=== PATIENT | male | born 1995 | race Hispanic/Latino ===

== ENCOUNTER 2019-04-10 20:47 | Inpatient (IN) | payer OTHER ==
[2019-04-10 21:18] VITALS: BMI 28.8
[2019-04-10] MEDS: MORPHINE 2 MG/ML SYR IV PRN (22:04)
[2019-04-10] MEDS: NA CHLORIDE 0.9% 1,000 ML IV SCH (22:05)
[2019-04-11] MEDS: MORPHINE 2 MG/ML SYR IV PRN ×6 (00:14→23:27)
[2019-04-11 05:12] LABS: Absolute Lymphocytes (CBC) 0.8 K/uL (0.7-4.9); Absolute Monocytes 0.9 K/uL (0.1-1.3); Absolute Neutrophil 11.9 K/uL (1.8-8.0); Basophils % 0.1 % (0-1.3); Hematocrit 43.9 % (39.6-49.0); Lymphocytes % 5.8 % (15.3-44.8); MPV 7.1 fL (7.6-11.3); Monocytes % 6.8 % (3.3-12.3); RBC Red Blood Cell Count 5.12 M/uL (4.33-5.43)
[2019-04-11 05:25] LABS: BUN Blood Urea Nitrogen 8 mg/dL (7-18); Bicarbonate 26 mmol/L (21-32); Glucose Level 132 mg/dL (74-106); Potassium 3.7 mmol/L (3.5-5.1); Sodium Level 135 mmol/L (136-145)
[2019-04-11 07:14] LABS: Blood Morphology Comment NOT SEEN (NOT SEEN); Platelet Estimate ADEQ
[2019-04-11] MEDS ORDERED: Ringers Lactate 1,000 ML IV ONE ×2 (09:17→10:35)
[2019-04-11] MEDS ORDERED: CEFOXITIN/SWI 1gm 1 GM/10 ML SYR ONE (09:38)
[2019-04-11] MEDS ORDERED: PROPOFOL 200 MG/20 ML VIAL IV ONE (09:42)
[2019-04-11] MEDS ORDERED: LIDOCAINE 1% MPF 5 ML VIAL ONE (09:42)
[2019-04-11] MEDS ORDERED: FENTANYL CITR 100 MCG/2 ML ONE ×2 (09:42→10:35)
[2019-04-11] MEDS ORDERED: ROCURONIUM 50 MG/5 ML VIAL IV ONE (09:42)
[2019-04-11] MEDS ORDERED: MIDAZOLAM HCL 2 MG/2 ML INJ ONE (09:42)
[2019-04-11] MEDS ORDERED: SUCCINYLCHOLINE 20 MG/ML (10 ML) IV ONE ×2 (09:54→11:16)
[2019-04-11] MEDS ORDERED: KETOROLAC 30 MG/ML INJ ONE (10:35)
[2019-04-11] MEDS ORDERED: GLYCOPYRROLATE 0.2 MG/ML SYR ONE (10:35)
[2019-04-11] MEDS ORDERED: ONDANSETRON 4 MG/2 ML VIAL ONE (10:35)
[2019-04-11] MEDS ORDERED: NEOSTIGMINE 1 MG/ML -10 ML VIAL ONE (10:35)
--- NOTE | 2019-04-11 10:48 | P.BOP ---
Preoperative diagnosis: LLQ, suprapubic pain, acute appendicititis Postoperative diagnosis: same Primary procedure: 1. Diagnostic laparoscopy, 2. laparoscopic appendectomy Graphite Mill Operator: KAREL RUELAS (DIRECTOR ONLINE MARKETING) Estimated blood loss: <10cc Specimen: appendix Findings: acute appendicititis Anesthesia: General Complications: None Transferred to: Recovery Room Condition: Good
--- NOTE | 2019-04-11 11:59 | HP ---
Date of Admission: 04/10/2019 History Of Present Illness: Mr. Jarrett is a 23-year-old patient, came to a local ER a few hours ago with suprapubic tenderness. They did an extensive workup on him including blood work, imaging, CT s can, and found to have some cystitis and also a structure in the appendix that looks abnormal, althou gh they cannot associate the pain completely to his findings and appendix. They understand the patie nt has this disease and they want me to admit the patient to this institution and transfer for contin ued workup for this problem. He denies any dysuria, hematuria, hematochezia, or melena. He denies a ny recent traveling out of the country. He denies any family members sick at home. He said the pain started today; he has not had this pain before. He denies any trauma, any heavy lifting, and denies any dysuria. Review of Systems: Ten points otherwise unremarkable. Past Surgical History: None. Past Medical History: None. Social History: He does smoke a half pack a day. He does not drink alcohol. Family History: Noncontributory. No history of cancer. Physical Examination: General: The patient is awake and alert. HEENT: Pupils are equal and reactive, anicteric. Neck: Supple. Chest: Clear. Abdomen: Left lower quadrant suprapubic and also mild right lower quadrant tenderness. There is no rebound tenderness at this moment. He points right at suprapubic area as the main area of his pain. He said it moved to the left side. Rectal: Deferred by the patient. Extremities: Good capillary refill. Neurologic: Cranial nerves 2 through 12 grossly within normal limits. Laboratory Data: UA; nitrite negative, blood negative. Creatinine is 0.9. WBC count of 10.1, plate lets 278. CAT scan of abdomen and pelvis was done in [place] by the radiologist. They claim that the patient has a small umbilical hernia. The aorta, kidney, adrenal, pancreas, spleen and liver with no major abno rmalities and no pneumoperitoneum. They noticed the appendix to be mildly dilated, they cannot say i t is a mucocele or not. They do not see any periappendiceal stranding or wall thickening. There is a circumferential urinary bladder wall thickening suspicious for cystitis. Assessment And Plan: This is a 23-year-old patient with a suprapubic pain. CAT scan shows some dila brenden appendix and there is no periappendiceal inflammation. WBC count 10. They also claimed the patricia ent has cystitis, although the UA is negative. We are admitting him n.p.o. We are going to repeat t he blood work. Once again, we are going to give him hydration. We are going to hold the antibiotics at this moment. I discussed with him and his family the options of diagnostic laparoscopy, laparosc opic/possible open appendectomy with benefits, alternatives, and risks including, but not limited to infection, bleeding, damage to adjacent structures, anesthesia complications, negative appendix, and negative exploration. At this moment, we are going to try to see how he goes in the next few hours. We are going to repeat the CBC once again and if we see that he does not improve in the next day few hours, he is going to have to let me put the camera in and we will take a look at that appendix to m sonia sure that it is not just an atypical appendicitis, he understands. SAMIRA/LOPEZ Voice ID: [id number]
[2019-04-11] MEDS ORDERED: CEFOXITIN SODIUM 1 GM/VIAL IVPB SCH (12:00)
[2019-04-11] MEDS: CEFOXITIN/SWI 1gm 1 GM/10 ML SYR IV SCH ×3 (12:01→23:28)
[2019-04-11] MEDS: NA CHLORIDE 0.9% 1,000 ML IV SCH (12:01)
[2019-04-11] MEDS: HYDROCODONE/APAP 7.5/325 MG TAB PO PRN (13:57)
[2019-04-11] MEDS: ACETAMINOPHEN 325 MG TABLET PO PRN (16:55)
--- NOTE | 2019-04-11 20:38 | OP ---
Date of Procedure: 04/11/2019 Surgeon: Sarath Knapp MD Diagnosis: Suprapubic pain and left lower quadrant abdominal pain. Acute appendicitis, cystitis. Indications: This is the case of a 23-year-old patient transferred yesterday from another [facility] due to abdominal pain. Etiology of that is not completely clear and in the last few hours patient delineated to mostly suprapubic area and right lower quadrant with increased WBC count. We explained to him the need for diagnostic laparoscopy, laparoscopic, possible open appendectomy with benefits, alternatives, and risks including, but not limited to infection, bleeding, damage to adjacent structu res, anesthesia complication, ME, even . He also understands this may not relieve any symptoms. He might need more than one surgical intervention. He understood, signed a consent. Description Of Procedure: The patient was brought to the operating room, placed in supine position. Anesthesia was done without complication. Abdominal area was prepped and draped in usual sterile fa shion. Marcaine 0.5% was injected for local anesthetic. After time-out was called, incision was mad e over the infraumbilical region. Incision was carried down to fascia, which was opened under direct vision. Peritoneum was encountered, opened under direct vision. Vicryl #1 placed inside the fascia . Mihaela trocar was carefully introduced. Pneumoperitoneum was obtained. I placed 2 more trocars, 5 mm each one of them, in the suprapubic and left lower quadrant under direct visualization. This al lowed me to put a grasper in the area of the periappendiceal region, noticed an inflamed appendix. T he base of the appendix seems to be spared, the rest looks to be inflamed. Goes medially into the hardwick prapubic area, that explained the suprapubic pain. We did diagnostic laparoscopy. The bladder seeme d to be intact, although he has initial diagnosis of cystitis. The rest of intestines looked intact. Stomach and liver with no masses seen. No incarcerated hernia seen. At that moment, I proceeded t o create a window in the base of the appendix, transected that with an Endo MIKA 45 mm 3.5, and the me soappendix with an Endo MIKA 45 mm 2.5, and further hemostasis was obtained with hemoclips. Appendix removed from abdominal cavity using an EndoCatch through the umbilical incision. The area was inspec brenden once again. No bowel leak. No bleeding. At that moment, I proceeded to remove the trocars unde r direct vision. Deflated the pneumoperitoneum. Closed the fascia with #1 Vicryl, irrigated the sub cutaneous tissue, closed that with 3-0 chromic and the skin with sussy. Sponge count and instrumen t counts were correct. The patient tolerated the procedure well. The patient was sent to Recovery i n stable condition. SAMIRA/LOPEZ Voice ID: [id number] Report ID: [id number]
[2019-04-12] MEDS: ACETAMINOPHEN 325 MG TABLET PO PRN (00:01)
[2019-04-12 00:41] VITALS: O2SAT 100
[2019-04-12] MEDS: NA CHLORIDE 0.9% 1,000 ML IV SCH ×2 (02:35→11:30)
[2019-04-12] MEDS: MORPHINE 2 MG/ML SYR IV PRN ×2 (03:51→08:02)
[2019-04-12] MEDS: CEFOXITIN/SWI 1gm 1 GM/10 ML SYR IV SCH ×5 (06:16→23:00)
[2019-04-12] MEDS: HYDROCODONE/APAP 7.5/325 MG TAB PO PRN ×3 (07:29→21:50)
--- NOTE | 2019-04-12 20:39 | PN ---
Date of Progress Note: 04/12/2019 Diagnosis: Acute appendicitis. Subjective: The patient had appendectomy done. He is doing better, although early this morning he h ad fevers of 102. He is feeling better right now. The last few times he has been afebrile. He is t rying to tolerate the diet. Has not had a bowel movement yet, but he has apparently passed just a fe w seconds ago some flatus. He has been requiring some pain medication. Objective: Chest: Clear. Abdomen: Soft and depressible. Intact surgical site. Plan: The patient will continue with pain control. IV antibiotics, and if by tomorrow is afebrile, we may consider sending him home. We are going to advance his diet. SAMIRA/LOPEZ Voice ID: [id number] Report ID: [id number]
[2019-04-13] MEDS: MORPHINE 2 MG/ML SYR IV PRN (00:22)
[2019-04-13] MEDS: NA CHLORIDE 0.9% 1,000 ML IV SCH ×2 (03:35→11:38)
[2019-04-13] MEDS: HYDROCODONE/APAP 7.5/325 MG TAB PO PRN ×2 (03:38→10:28)
[2019-04-13] MEDS: CEFOXITIN/SWI 1gm 1 GM/10 ML SYR IV SCH ×2 (06:18→11:33)
[2019-04-13 13:24] VITALS: TEMP 97.9
--- NOTE | 2019-04-13 15:46 | P.DS ---
Admission Date: 04/11/19 Discharge Date: 04/13/19 Disposition: ROUTINE DISCHARGE Discharge Condition: GOOD Vital Signs/Physical Exam: Temp Pulse Resp BP Pulse Ox 97.9 F 85 18 131/69 96 04/13/19 12:00 04/13/19 12:00 04/13/19 12:00 04/13/19 12:00 04/13/19 12:00 General: Alert, In no apparent distress, Oriented x3, Cooperative HEENT: EOMI Neck: Supple Respiratory: Normal air movement Gastrointestinal: Soft and benign Neurological: Normal speech Laboratory Data at Discharge: WBC 13.6 K/uL (4.3-10.9) H 04/11/19 04:41 Hgb 15.3 g/dL (13.6-17.9) 04/11/19 04:41 Hct 43.9 % (39.6-49.0) 04/11/19 04:41 Plt Count 249 K/uL (152-406) 04/11/19 04:41 Sodium 135 mmol/L (136-145) L 04/11/19 04:41 Potassium 3.7 mmol/L (3.5-5.1) 04/11/19 04:41 BUN 8 mg/dL (7-18) 04/11/19 04:41 Creatinine 0.94 mg/dL (0.55-1.3) 04/11/19 04:41 Glucose 132 mg/dL (74-106) H 04/11/19 04:41 Home Medications: NK [No Home Meds] 04/11/19 Patient Discharge Instructions: may take a shower with dressing off Diet: AHA Activity: No lifting more than 10 lbs Followup: Sarath Knapp MD [ACTIVE - CAN ADMIT] - 1 Week
[2019-04-13 16:55] VITALS: BP 142/72
== END 2019-04-13 16:52 | disposition home or self-care (01) | DRG 343 ==
LOC: 4TH 20:48 → OBSVTOIN 20:48 → INTOOBSV 20:48 → OBSVTOIN 04-11 20:48
PROVIDERS: ADMIT Surgery; ATTEND Surgery
PROC: 0DTJ4ZZ Resection of Appendix, Percutaneous Endoscopic Approach (ICD-10-PCS; principal; 2019-04-11 10:00)
DX: K35.80 Unspecified acute appendicitis (principal); N30.90 Cystitis, unspecified without hematuria; F17.210 Nicotine dependence, cigarettes, uncomplicated
CPT/HCPCS: 36415; 80048; 83605; 85025; 87040; 88304; 96365; 96367; G0378; J0330; J2250; J2270; J2405; J2704; J2710; J3010; J7030

== ENCOUNTER 2020-05-27 01:24 | Emergency (ER) | payer OTHER ==
[2020-05-27 03:02] LABS: Absolute Lymphocytes (CBC) 2.5 K/uL (0.7-4.9); Basophils % 0.5 % (0-1.3); Hematocrit 49.6 % (39.6-49.0); Lymphocytes % 29.1 % (15.3-44.8); MPV 7.5 fL (7.6-11.3); Protime INR 0.91; RBC Red Blood Cell Count 5.78 M/uL (4.33-5.43)
[2020-05-27 03:18] LABS: ALT/SGPT 133 U/L (12-78); AST/SGOT 71 U/L (15-37); Albumin 4.4 g/dL (3.4-5.0); Alkaline Phosphatase 101 U/L (45-117); BUN Blood Urea Nitrogen 13 mg/dL (7-18); Bicarbonate 23 mmol/L (21-32); Bilirubin Direct 0.1 mg/dL (0-0.2); Bilirubin Total 0.7 mg/dL (0.2-1.0); Creatine Phosphokinase 111 U/L (39-308); Glucose Level 111 mg/dL (74-106); Magnesium 2.2 mg/dL (1.8-2.4); NT PRO-BNP 14 pg/mL (<125); Potassium 3.7 mmol/L (3.5-5.1); Protein, Total 8.6 g/dL (6.4-8.2); Sodium Level 138 mmol/L (136-145); Troponin (Emerg Dept Use Only) < 0.02 ng/mL (0.0-0.045)
[2020-05-27 03:38] LABS: Barbiturates NEGATIVE (NEGATIVE); Benzodiazepines NEGATIVE (NEGATIVE); Cocaine POSITIVE (NEGATIVE); METHAMPHETAM NEGATIVE (NEGATIVE); Methadone NEGATIVE (NEGATIVE); Opiates NEGATIVE (NEGATIVE); Phencyclidine NEGATIVE (NEGATIVE); THC Cannibis NEGATIVE (NEGATIVE)
[2020-05-27 03:43] LABS: Urine Glucose NEGATIVE (NEG); Urine Specific Gravity 1.025 (1.005-1.030)
[2020-05-27 03:44] LABS: Urine Blood NEGATIVE (NEG); Urine Protein NEGATIVE (NEG); Urine pH 7.5 (5.0-7.0)
[2020-05-27] MEDS ORDERED: LORazepam 2 MG/ML VIAL ONE (04:29)
--- NOTE | 2020-05-27 05:33 | EDPHYS ---
Physician Documentation [facility] Name: Kolby Balbuena Age: 25 yrs Sex: Male : 1995 Arrival Date: 05/27/2020 Time: : Bed 14 Private MD: ED Physician Jhoan Pacheco HPI: 05/27 02:41 This 25 yrs old Male presents to ER via Ambulatory with complaints of Anxiety. [facility] 02:41 The patient presents to the emergency department with anxiety, over unknown [facility] circumstances. Onset: The symptoms/episode began/occurred today. Past psychiatric history: Prior diagnosis: Anxiety, Psychiatric medications include: none, Refused to take medication he was started on several months ago, Primary psychiatric physician: the patient does not have a primary psychiatric physician, the patient has not had a prior suicide gesture, the patient does not have a previous inpatient psychiatric history, the patient's last psychiatric treatment was none. Associated signs and symptoms:. 02:43 Severity of symptoms: At their worst the symptoms were moderate today, in the emergency [facility] department the symptoms have improved moderately. The patient has experienced similar episodes in the past, several times. 02:43 Associated signs and symptoms: Pertinent positives; anxiety, chest pain, suicide mh7 ideation, cocaine, Pertinent negatives: abdominal pain, chills, delusions, depression, fever, hallucinations, headache, homicidal ideation, nausea, night sweats, palpitations, paranoia, shortness of breath, suicide ideation, tremor, vomiting. Historical: - Allergies: 01:38 No Known Allergies; lp1 - Home Meds: 01:38 None [Active]; lp1 - PMHx: 01:38 Anxiety; lp1 - PSHx: 01:38 Appendectomy; lp1 - Immunization history:: Adult Immunizations up to date. - Social history:: Smoking status: Patient reports the use of cigarette tobacco products, denies chronic smoking, but will smoke occasionally, Patient uses alcohol, on a daily basis. street drugs, marijuana. ROS: 02:43 Constitutional: Negative for fever, chills, and weight loss, Eyes: Negative for injury, mh7 pain, redness, and discharge, ENT: Negative for injury, pain, and discharge, Neck: Negative for injury, pain, and swelling, Respiratory: Negative for shortness of breath, cough, wheezing, and pleuritic chest pain, Abdomen/GI: Negative for abdominal pain, nausea, vomiting, diarrhea, and constipation, Back: Negative for injury and pain, : Negative for injury, bleeding, discharge, and swelling, MS/Extremity: Negative for injury and deformity, Skin: Negative for injury, rash, and discoloration, Neuro: Negative for headache, weakness, numbness, tingling, and seizure, Allergy/Immunology: Negative for hives, rash, and allergies, Endocrine: Negative for neck swelling, polydipsia, polyuria, polyphagia, and marked weight changes, Hematologic/Lymphatic: Negative for swollen nodes, abnormal bleeding, and unusual bruising. Exam: 02:43 Constitutional: This is a well developed, well nourished patient who is awake, alert, mh7 and in no acute distress. Head/Face: Normocephalic, atraumatic. Eyes: Pupils equal round and reactive to light, extra-ocular motions intact. Lids and lashes normal. Conjunctiva and sclera are non-icteric and not injected. Cornea within normal limits. Periorbital areas with no swelling, redness, or edema. Neck: Trachea midline, no thyromegaly or masses palpated, and no cervical lymphadenopathy. Supple, full range of motion without nuchal rigidity, or vertebral point tenderness. No Meningismus. Chest/axilla: Normal chest wall appearance and motion. Nontender with no deformity. No lesions are appreciated. Cardiovascular: Regular rate and rhythm with a normal S1 and S2. No gallops, murmurs, or rubs. Normal PMI, no JVD. No pulse deficits. Respiratory: Lungs have equal breath sounds bilaterally, clear to auscultation and percussion. No rales, rhonchi or wheezes noted. No increased work of breathing, no retractions or nasal flaring. Abdomen/GI: Soft, non-tender, with normal bowel sounds. No distension or tympany. No guarding or rebound. No evidence of tenderness throughout. Back: No spinal tenderness. No costovertebral tenderness. Full range of motion. Skin: Warm, dry with normal turgor. Normal color with no rashes, no lesions, and no evidence of cellulitis. MS/ Extremity: Pulses equal, no cyanosis. Neurovascular intact. Full, normal range of motion. Neuro: Awake and alert, GCS 15, oriented to person, place, time, and situation. Cranial nerves II-XII grossly intact. Motor strength 5/5 in all extremities. Sensory grossly intact. Cerebellar exam normal. Normal gait. 02:43 Psych: Behavior/mood is anxious, Affect is calm, Oriented to person, place, time, Patient has no thoughts/intents to harm self or others. Judgement / Insight is normal. Memory is normal. Delusions/hallucinations are not present. 05:03 ECG was reviewed by the Attending Physician. [facility] Vital Signs: 01:39 BP 147 / 98; Pulse 80; Resp 18; Temp 98.5(O); Pulse Ox 99% on R/A; Weight 90.72 kg (R); lp1 Height 5 ft. 9 in. (175.26 cm); 03:08 BP 141 / 97; Pulse 91; Resp 19; Pulse Ox 99% on R/A; lp1 04:00 BP 147 / 92; Pulse 84; Resp 14; Pulse Ox 99% on R/A; lp1 05:00 BP 130 / 91; Pulse 81; Resp 14; Pulse Ox 98% on R/A; lp1 05:51 BP 134 / 88; Pulse 83; Resp 16; Pulse Ox 99% on R/A; lp1 01:39 Body Mass Index 29.54 (90.72 kg, 175.26 cm) 1 MDM: 02:22 Patient medically screened. [facility] 05:29 Differential diagnosis: drug withdrawal. depression, Anxiety, Substance Abuse. Data [facility] reviewed: vital signs, nurses notes, lab test result(s), CBC, electrolytes, urine drug screen, EKG, radiologic studies, plain films. Data interpreted: quality assurance monitor body: rate is 73 beats/min, rhythm is normal sinus rhythm, regular, Interpretation: normal rate, normal rhythm, Pulse oximetry: on room air is 99 %. Interpretation: normal. Counseling: I had a detailed discussion with the patient and/or guardian regarding: the historical points, exam findings, and any diagnostic results supporting the discharge/admit diagnosis, the presence of at least one elevated blood pressure reading (>120/80) during this emergency department visit, lab results, radiology results, the need for outpatient follow up, to return to the emergency department if symptoms worsen or persist or if there are any questions or concerns that arise at home. Response to treatment: the patient's symptoms have resolved after treatment, the patient's blood pressure is in an acceptable range, mental status has returned to baseline, the patient no longer shows bradycardia, the patient is not short of breath, the patient is not tachycardic, the patient's pain is gone, the patient's temperature has normalized. 05/27 02:23 Order name: Basic Metabolic Panel; Complete Time: 03:47 7 05/27 02:23 Order name: CBC with Diff; Complete Time: 03:47 05/27 02:23 Order name: LFT's; Complete Time: 03:47 05/27 02:23 Order name: Magnesium; Complete Time: 03:47 05/27 02:23 Order name: NT PRO-BNP; Complete Time: 03:47 05/27 02:23 Order name: PT-INR; Complete Time: 03:47 05/27 02:23 Order name: Troponin (emerg Dept Use Only); Complete Time: 03:47 05/27 02:23 Order name: XRAY Chest (1 view) [facility] 05/27 02:23 Order name: EKG; Complete Time: 02:25 7 05/27 02:23 Order name: Cardiac monitoring; Complete Time: 03:05 05/27 02:23 Order name: CPK; Complete Time: 03:47 05/27 02:23 Order name: UDS; Complete Time: 03:47 05/27 02:51 Order name: Urine Dipstick--Ancillary (enter results); Complete Time: 03:47 tt3 05/27 02:23 Order name: EKG - Nurse/Tech; Complete Time: 03:05 7 05/27 02:23 Order name: IV Saline Lock; Complete Time: 03:05 7 05/27 02:23 Order name: Labs collected and sent; Complete Time: 03:05 05/27 02:23 Order name: O2 Per Protocol; Complete Time: 03:05 05/27 02:23 Order name: O2 Sat Monitoring; Complete Time: 03:05 7 EC:03 Rate is 74 beats/min. Rhythm is regular, Normal Sinus Rhythm. QRS [place] is Normal. MT mh7 interval is normal. QRS interval is normal. QT interval is normal. No Q waves. T waves are Normal. No ST changes noted. Clinical impression: NSR w/ Non-specific ST/T Changes. Administered Medications: 04:41 Drug: Ativan 1 mg Route: IVP; Site: right antecubital; lp1 05:54 Follow up: Response: Marked relief of symptoms lp1 Disposition: 05/27/20 05:32 Discharged to Home. Impression: Cocaine Abuse, Anxiety. - Condition is Stable. - Discharge Instructions: Stimulant Use Disorder-Cocaine, Generalized Anxiety Disorder. - Work release form, Medication Reconciliation Form, Thank You Letter, Antibiotic Education, Prescription Opioid Use form. - Follow up: Private Physician; When: 1 - 2 days; Reason: Worsening of condition, Recheck today's complaints, Re-evaluation by your physician. - Problem is an acute exacerbation. - Symptoms have improved. Signatures: Dispatcher [employer] Inez Huang RN RN lp1 Jhoan Pacheco MD MD mh7 Corrections: (The following items were deleted from the chart) 05:54 05:32 05/27/2020 05:32 Discharged to Home. Impression: Cocaine Abuse; Anxiety. lp1 Condition is Stable. Forms are Medication Reconciliation Form, Thank You Letter, Antibiotic Education, Prescription Opioid Use. Follow up: Private Physician; When: 1 - 2 days; Reason: Worsening of condition, Recheck today's complaints, Re-evaluation by your physician. Problem is an acute exacerbation. Symptoms have improved. mh7
--- NOTE | 2020-05-27 05:33 | ER ---
Nurse's Notes [facility] Name: Kolby Balbuena Age: 25 yrs Sex: Male : 1995 Arrival Date: 05/27/2020 Time: : Bed 14 Private MD: Diagnosis: Cocaine Abuse;Anxiety Presentation: 05/27 01:36 Chief complaint: Patient states: States attempting to go to bed tonight and feeling lp1 shaky, hands clammy, chest feels tight; similar to previous anxiety attacks;. Ebola Screen: No symptoms or risks identified at this time. Risk Assessment: Do you want to hurt yourself or someone else? Patient reports no desire to harm self or others. Onset of symptoms was May 27, 2020. 01:36 Method Of Arrival: Ambulatory lp1 01:36 Acuity: JEANNE 3 lp1 01:39 Coronavirus screen: Patient denies a cough. Patient denies shortness of breath or lp1 difficulty breathing. Patient denies measured and/or subjective temperature greater than 100.4F prior to today's visit. Patient denies travel on a cruise ship or to a country the [facility]NOTE 3] currently lists as an affected area. Patient denies contact with known and/or suspected case of COVID-19. Initial Sepsis Screen: Does the patient meet any 2 criteria? No. Patient's initial sepsis screen is negative. Does the patient have a suspected source of infection? No. Patient's initial sepsis screen is negative. Historical: - Allergies: 01:38 No Known Allergies; lp1 - Home Meds: 01:38 None [Active]; lp1 - PMHx: 01:38 Anxiety; lp1 - PSHx: 01:38 Appendectomy; lp1 - Immunization history:: Adult Immunizations up to date. - Social history:: Smoking status: Patient reports the use of cigarette tobacco products, denies chronic smoking, but will smoke occasionally, Patient uses alcohol, on a daily basis. street drugs, marijuana. Screenin:39 Abuse screen: Denies threats or abuse. Denies injuries from another. Nutritional lp1 screening: No deficits noted. Tuberculosis screening: No symptoms or risk factors identified. Fall Risk None identified. Assessment: 03:09 General: Appears in no apparent distress. Behavior is appropriate for age. Pain: lp1 Complains of pain in chest Pain currently is 3 out of 10 on a pain scale. Quality of pain is described as shooting. Neuro: Level of Consciousness is awake, alert, obeys commands. Cardiovascular: Patient's skin is warm and dry. Respiratory: Respiratory effort is even, unlabored, Breath sounds are clear bilaterally. GI: No signs and/or symptoms were reported involving the gastrointestinal system. : No signs and/or symptoms were reported regarding the genitourinary system. EENT: No signs and/or symptoms were reported regarding the EENT system. Derm: Skin is pink, warm \\T\\ dry. Musculoskeletal: No deficits noted. 04:15 Reassessment: Patient appears in no apparent distress at this time. Patient to bathroom lp1 at this time; states feeling of anxiety "comes and goes". 05:49 Reassessment: Patient appears in no apparent distress at this time. Patient states lp1 feeling better. Patient states symptoms have improved. General: Appears in no apparent distress. Behavior is calm. Vital Signs: 01:39 BP 147 / 98; Pulse 80; Resp 18; Temp 98.5(O); Pulse Ox 99% on R/A; Weight 90.72 kg (R); lp1 Height 5 ft. 9 in. (175.26 cm); 03:08 BP 141 / 97; Pulse 91; Resp 19; Pulse Ox 99% on R/A; lp1 04:00 BP 147 / 92; Pulse 84; Resp 14; Pulse Ox 99% on R/A; lp1 05:00 BP 130 / 91; Pulse 81; Resp 14; Pulse Ox 98% on R/A; lp1 05:51 BP 134 / 88; Pulse 83; Resp 16; Pulse Ox 99% on R/A; lp1 01:39 Body Mass Index 29.54 (90.72 kg, 175.26 cm) lp1 ED Course: 01:27 Patient arrived in ED. cl3 01:37 Triage completed. lp1 01:37 Arm band placed on right wrist. lp1 02:00 Jhoan Pacheco MD is Attending Physician. 7 02:51 Inez Pinto, ROSEMARY is Primary Nurse. lp1 02:52 Inserted saline lock: 20 gauge in right antecubital area, using aseptic technique. lp1 Blood collected. 02:54 XRAY Chest (1 view) In Process Unspecified. EDMS 03:11 Patient has correct armband on for positive identification. groundwater monitoring technician on. Pulse lp1 ox on. NIBP on. 05:53 No provider procedures requiring assistance completed. IV discontinued, No lp1 redness/swelling at site. Pressure dressing applied. Administered Medications: 04:41 Drug: Ativan 1 mg Route: IVP; Site: right antecubital; lp1 05:54 Follow up: Response: Marked relief of symptoms lp1 Outcome: 05:32 Discharge ordered by . 7 05:53 Discharged to home ambulatory, with significant other. lp1 05:53 Condition: good 05:53 Discharge instructions given to patient, Instructed on discharge instructions, follow up and referral plans. Demonstrated understanding of instructions, follow-up care. 05:54 Patient left the ED. lp1 Signatures: Dispatcher [employer] EDInez King RN RN lp1 Zen Gomes cl3 Jhoan Pacheco MD MD 7 Corrections: (The following items were deleted from the chart) 01:42 01:39 Pulse 80bpm; Resp 18bpm; Pulse Ox 99% RA; Temp 98.5F Oral; 90.72 kg Reported; lp1 Height 5 ft. 9 in.; BMI: 29.5; lp1
[2020-05-27 06:14] VITALS: TEMP 98.5
[2020-05-27 06:18] VITALS: BP 134/88; O2SAT 99
--- NOTE | 2020-05-27 07:59 | RAD REPORT ---
EXAM DESCRIPTION: Maria L Single View05/27/2020 2:54 am CLINICAL HISTORY: Chest pain COMPARISON: none FINDINGS: The lungs appear clear of acute infiltrate. The heart is normal size IMPRESSION: No acute abnormalities displayed
--- NOTE | 2020-05-28 07:19 | EKG ---
Test Date: 2020-05-27 Test Time: 03:01:48 [employer] Operator: CARRIE MEASUREMENT RESULTS: Intervals: Rate: 74 FL: 166 QRSD: 90 QT: 386 QTc: 428 [place]: P: 33 FL: 166 QRS: 64 T: 20 INTERPRETIVE STATEMENTS: Normal sinus rhythm RSR' or QR pattern in V1 suggests right ventricular conduction delay Borderline ECG No previous ECG available for comparison Electronically Signed On 05-28-20 07:15:58 CDT by Neftaly Vo
== END 2020-05-27 05:54 | disposition home or self-care (01) ==
LOC: ER 01:24
DX: F14.10 Cocaine abuse, uncomplicated (principal); F17.210 Nicotine dependence, cigarettes, uncomplicated
CPT/HCPCS: 36415; 71045; 80048; 80076; 80307; 81003; 82550; 83735; 83880; 84484; 85025; 85610; 93005; 96374; 99284

== ENCOUNTER 2020-11-27 17:48 | Emergency (ER) | payer OTHER ==
--- NOTE | 2020-11-27 19:19 | RAD REPORT ---
EXAM DESCRIPTION: RAD - Chest Pa And Lat (2 Views) - 11/27/2020 6:06 pm CLINICAL HISTORY: CHEST PAIN COMPARISON: Portable May 27 TECHNIQUE: Frontal and lateral views of the chest were obtained. FINDINGS: The lungs are clear. Heart size is normal and central vasculature is within normal limit s. No pleural effusion or pneumothorax seen. No acute bony finding noted. No aortic abnormality. IMPRESSION: No acute cardiopulmonary process. No significant change from comparison study.
--- NOTE | 2020-11-27 20:32 | EDPHYS ---
Physician Documentation [facility] Name: Kolby Balbuena Age: 25 yrs Sex: Male : 1995 Arrival Date: 11/27/2020 Time: 17:49 Bed 28 Private MD: ED Physician Renaldo Hopkins HPI: 11/27 19:53 This 25 yrs old Male presents to ER via Ambulatory with complaints of Chest kb Pain. 19:53 The patient has not experienced similar symptoms in the past. The patient has not kb recently seen a physician. 19:53 The patient or guardian reports flu symptoms, low-grade fever, myalgias, no appetite. kb Onset: The symptoms/episode began/occurred 3 day(s) ago. Severity of symptoms: At their worst the symptoms were moderate, in the emergency department the symptoms are unchanged. Modifying factors: The symptoms are alleviated by nothing, the symptoms are aggravated by nothing. Associated signs and symptoms: Pertinent positives: malaise, fatigue, chest tightness. Pt states he hasn't been feeling well, having fatigue and chest tightness so he came in to be tested for COVID.. Historical: - Allergies: 17:58 No Known Allergies; ca1 - Home Meds: 17:58 None [Active]; ca1 - PMHx: 17:58 Anxiety; ca1 - PSHx: 17:58 Appendectomy; ca1 - Immunization history:: Adult Immunizations up to date, Flu vaccine is not up to date. - Social history:: Smoking status: Patient/guardian denies using tobacco, the patient reports quitting approximately 1.5 years ago. ROS: 19:51 Respiratory: Negative for shortness of breath, cough, wheezing, and pleuritic chest kb pain, Abdomen/GI: Negative for abdominal pain, nausea, vomiting, diarrhea, and constipation, Back: Negative for injury and pain, MS/Extremity: Negative for injury and deformity, Skin: Negative for injury, rash, and discoloration, Neuro: Negative for headache, weakness, numbness, tingling, and seizure. 19:51 Constitutional: Positive for body aches, chills, fatigue, fever, malaise. 19:51 Cardiovascular: Positive for chest pain. Exam: 18:50 ECG was reviewed by the Attending Physician. kb 19:51 Constitutional: This is a well developed, well nourished patient who is awake, alert, kb and in no acute distress. Head/Face: Normocephalic, atraumatic. Chest/axilla: Normal chest wall appearance and motion. Nontender with no deformity. No lesions are appreciated. Cardiovascular: Regular rate and rhythm with a normal S1 and S2. No gallops, murmurs, or rubs. Normal PMI, no JVD. No pulse deficits. Respiratory: Lungs have equal breath sounds bilaterally, clear to auscultation and percussion. No rales, rhonchi or wheezes noted. No increased work of breathing, no retractions or nasal flaring. Abdomen/GI: Soft, non-tender, with normal bowel sounds. No distension or tympany. No guarding or rebound. No evidence of tenderness throughout. Skin: Warm, dry with normal turgor. Normal color with no rashes, no lesions, and no evidence of cellulitis. MS/ Extremity: Pulses equal, no cyanosis. Neurovascular intact. Full, normal range of motion. Neuro: Awake and alert, GCS 15, oriented to person, place, time, and situation. Cranial nerves II-XII grossly intact. Motor strength 5/5 in all extremities. Sensory grossly intact. Cerebellar exam normal. Normal gait. Vital Signs: 17:55 BP 127 / 83; Pulse 91; Resp 15 S; Temp 98.5(TE); Pulse Ox 100% on R/A; Weight 92.99 kg ca1 (R); Height 5 ft. 9 in. (175.26 cm) (R); Pain 1/10; 20:30 BP 124 / 81; Pulse 86; Resp 16; Temp 98; Pulse Ox 100% on R/A; rv 17:55 Body Mass Index 30.27 (92.99 kg, 175.26 cm) ca1 MDM: 18:07 Patient medically screened. mayte 19:51 Data reviewed: vital signs, nurses notes. Data interpreted: Pulse oximetry: on room air kb is 100 %. Interpretation: normal. Counseling: I had a detailed discussion with the patient and/or guardian regarding: the historical points, exam findings, and any diagnostic results supporting the discharge/admit diagnosis, lab results, radiology results, the need for outpatient follow up, a family practitioner, to return to the emergency department if symptoms worsen or persist or if there are any questions or concerns that arise at home. 11/27 18:09 Order name: Flu; Complete Time: 20:32 kb 11/27 18:10 Order name: COVID-19 kb 11/27 17:51 Order name: Chest Pa And Lat (2 Views) XRAY; Complete Time: 19:27 kb 11/27 17:51 Order name: EKG; Complete Time: 17:51 kb 11/27 17:51 Order name: EKG - Nurse/Tech; Complete Time: 19:28 kb EC:50 Rate is 75 beats/min. Rhythm is regular. QRS [place] is Normal. MN interval is normal at kb 152 msec. QRS interval is normal at 92 msec. QT interval is normal at 360 msec. Administered Medications: No medications were administered Disposition: 11/28 06:59 Co-signature as Attending Physician, Renaldo Hopkins MD I agree with the assessment and mayte plan of care. Disposition: 11/27/20 20:32 Discharged to Home. Impression: Acute upper respiratory infection, unspecified. - Condition is Stable. - Discharge Instructions: Viral Respiratory Infection, COVID-19. - Medication Reconciliation Form, Thank You Letter, Antibiotic Education, Prescription Opioid Use form. - Follow up: Emergency Department; When: As needed; Reason: Worsening of condition. Follow up: Private Physician; When: 2 - 3 days; Reason: Recheck today's complaints, Continuance of care, Re-evaluation by your physician. Signatures: Dispatcher [employer] EDEvelyn Tovar, KANDI DIAZ-Renaldo Dutta MD MD cha Vicente, Ronaldo, RN RN rv Acob, Cheryl, RN RN ca1 Corrections: (The following items were deleted from the chart) 11/27 21:12 20:32 11/27/2020 20:32 Discharged to Home. Impression: Acute upper respiratory rv infection, unspecified. Condition is Stable. Discharge Instructions: Viral Respiratory Infection, COVID-19. Forms are Medication Reconciliation Form, Thank You Letter, Antibiotic Education, Prescription Opioid Use. Follow up: Emergency Department; When: As needed; Reason: Worsening of condition. Follow up: Private Physician; When: 2 - 3 days; Reason: Recheck today's complaints, Continuance of care, Re-evaluation by your physician. kb
--- NOTE | 2020-11-27 20:32 | ER ---
Nurse's Notes [facility] Name: Kolby Balbuena Age: 25 yrs Sex: Male : 1995 Arrival Date: 11/27/2020 Time: 17:49 Bed 28 Private MD: Diagnosis: Acute upper respiratory infection, unspecified Presentation: 11/27 17:55 Chief complaint: Patient states: Chest tightness x 2 days. Reports SOB with tightness, ca1 fatigue and headache. Denies cough, congestion and fever. Coronavirus screen: Client denies travel out of the [place] in the last 14 days. fatigue, headache, shortness of breath, Client presents with at least one sign or symptom that may indicate coronavirus-19. Standard/surgical mask placed on the client. Provider contacted for isolation considerations. The client denies any previous COVID testing. Ebola Screen: Patient negative for fever greater than or equal to 101.5 degrees Fahrenheit, and additional compatible Ebola Virus Disease symptoms Patient denies exposure to infectious person. Patient denies travel to an Ebola-affected area in the 21 days before illness onset. No symptoms or risks identified at this time. Initial Sepsis Screen: Does the patient meet any 2 criteria? No. Patient's initial sepsis screen is negative. Does the patient have a suspected source of infection? No. Patient's initial sepsis screen is negative. Risk Assessment: Do you want to hurt yourself or someone else? Patient reports no desire to harm self or others. Onset of symptoms was November 27, 2020. 17:55 Method Of Arrival: Ambulatory ca1 17:55 Acuity: JEANNE 3 ca1 Historical: - Allergies: 17:58 No Known Allergies; ca1 - Home Meds: 17:58 None [Active]; ca1 - PMHx: 17:58 Anxiety; ca1 - PSHx: 17:58 Appendectomy; ca1 - Immunization history:: Adult Immunizations up to date, Flu vaccine is not up to date. - Social history:: Smoking status: Patient/guardian denies using tobacco, the patient reports quitting approximately 1.5 years ago. Screenin:30 Abuse screen: Denies threats or abuse. Denies injuries from another. Nutritional rv screening: No deficits noted. Tuberculosis screening: No symptoms or risk factors identified. 19:30 Fall Risk None identified. rv Assessment: 19:30 General: Appears in no apparent distress. Behavior is anxious. Pain: Complains of pain rv in chest Pain does not radiate. Pain began suddenly. Neuro: Level of Consciousness is awake, alert, obeys commands, Oriented to person, place, time, situation. Cardiovascular: Patient's skin is warm and dry. 19:30 Respiratory: Airway is patent Respiratory effort is even, unlabored. rv Vital Signs: 17:55 BP 127 / 83; Pulse 91; Resp 15 S; Temp 98.5(TE); Pulse Ox 100% on R/A; Weight 92.99 kg ca1 (R); Height 5 ft. 9 in. (175.26 cm) (R); Pain /; 20:30 BP 124 / 81; Pulse 86; Resp 16; Temp 98; Pulse Ox 100% on R/A; rv 17:55 Body Mass Index 30.27 (92.99 kg, 175.26 cm) ca1 ED Course: 17:49 Patient arrived in ED. ag5 17:50 [facility] Swan [facility]C [facility] kb 17:50 Renaldo Hopkins MD is Attending Physician. kb 17:57 Triage completed. ca1 17:58 Arm band placed on right wrist. ca1 18:01 Leah Mosquera, ROSEMARY is Primary Nurse. ph 18:05 Chest Pa And Lat (2 Views) XRAY In Process Unspecified. EDMS 19:30 Patient has correct armband on for positive identification. Pulse ox on. NIBP on. rv 20:06 No provider procedures requiring assistance completed. Patient did not have IV access rv during this emergency room visit. Patient maintains SpO2 saturation greater than 95% on room air. Administered Medications: No medications were administered Outcome: 20:32 Discharge ordered by . kb 20:33 Discharged to home ambulatory. rv 20:33 Condition: good 20:33 Discharge instructions given to patient, Instructed on discharge instructions, follow rv up and referral plans. Demonstrated understanding of instructions, follow-up care. 21:12 Patient left the ED. rv Addendum: 12/02/2020 08:41 Addendum: COVID-19 Result: Negative result given to RN to notify pt. Contacted by: mitchel Raymond RN . Notified pt of negative COVID 19 swab results. Pt advised that even with a negative test result they should remain in isolation until symptom free for 3 days without medication. Pt also advised to return to the ED for worsening symptoms. Signatures: Dispatcher [employer] EDEvelyn Tovar, EMILY-C ORNAMENTAL METAL ERECTOR APPRENTICE-Mandi Nunez, RN RN Leah Hernandez RN Henri Smallwood ph, RN RN rv Bety Olson RN RN [facility] Charley, tein [facility]
[2020-11-27 21:18] VITALS: O2SAT 100
[2020-11-27 21:19] VITALS: BP 124/81; TEMP 98
--- NOTE | 2020-11-28 16:10 | EKG ---
Test Date: 2020-11-27 Test Time: 18:17:35 Vice President & General Manager [employer]: MEASUREMENT RESULTS: Intervals: Rate: 75 DC: 152 QRSD: 92 QT: 360 QTc: 402 [place]: P: 45 DC: 152 QRS: 56 T: 36 INTERPRETIVE STATEMENTS: Normal sinus rhythm Normal ECG Compared to ECG 05/27/2020 03:01:48 No significant changes Electronically Signed On 11-28-20 16:09:23 [employer]ITE [employer] by Neftaly Vo
== END 2020-11-27 21:12 | disposition home or self-care (01) ==
LOC: ER 17:48
DX: J06.9 Acute upper respiratory infection, unspecified (principal); Z20.828 Contact with and (suspected) exposure to other viral communicable diseases
CPT/HCPCS: 93005; 87804 ×2; 71046; 99284; U0002

== ENCOUNTER 2022-06-01 10:45 | Emergency (ER) | payer OTHER, SELFPAY ==
--- NOTE | 2022-06-01 12:48 | EDPHYS ---
Physician Documentation [facility] Name: Kolby Balbuena Age: 27 yrs Sex: Male : 1995 Arrival Date: 06/01/2022 Time: 10:49 Bed DIS3 Private MD: ED Physician Teo Michel HPI: 06/01 11:47 This 27 yrs old Male presents to ER via Ambulatory with complaints of r/o kb covid. 11:47 The patient or guardian reports flu symptoms, low-grade fever, myalgias. Onset: The kb symptoms/episode began/occurred 4 day(s) ago. Severity of symptoms: At their worst the symptoms were moderate, in the emergency department the symptoms are unchanged. Modifying factors: The symptoms are alleviated by nothing, the symptoms are aggravated by nothing. Associated signs and symptoms: Pertinent positives: fever, Pertinent negatives: chest pain, diarrhea, ear ache, nausea, rhinorrhea, sore throat, vomiting. The patient has not experienced similar symptoms in the past. The patient has not recently seen a physician. Pt reports bodyaches and fever for 4 days. Recent exposure to covid. Historical: - Allergies: 10:59 No Known Allergies; ld1 - Home Meds: 10:59 None [Active]; ld1 - PMHx: 10:59 Anxiety; ld1 - PSHx: 10:59 Appendectomy; ld1 - Immunization history:: Adult Immunizations up to date, Client reports having NOT received the Covid vaccine. - Social history:: Smoking status: Patient denies any tobacco usage or history of. Patient/guardian denies using alcohol. ROS: 11:47 Respiratory: Negative for shortness of breath, cough, wheezing, and pleuritic chest kb pain. 11:47 Constitutional: Positive for body aches, fever, malaise. 11:47 All other systems are negative. Exam: 11:47 Constitutional: This is a well developed, well nourished patient who is awake, alert, kb and in no acute distress. Head/Face: Normocephalic, atraumatic. ENT: Moist Mucous membranes Cardiovascular: Regular rate and rhythm with a normal S1 and S2. No gallops, murmurs, or rubs. No pulse deficits. Respiratory: Respirations even and unlabored. No increased work of breathing. Talking in full sentences Skin: Warm, dry with normal turgor. Normal color. MS/ Extremity: Pulses equal, no cyanosis. Neurovascular intact. Full, normal range of motion. Neuro: Awake and alert, GCS 15, oriented to person, place, time, and situation. Moves all extremities. Normal gait. Psych: Awake, alert, with orientation to person, place and time. Behavior, mood, and affect are within normal limits. Vital Signs: 10:58 BP 129 / 103; Pulse 86; Resp 20; Temp 98.1(TE); Pulse Ox 100% on R/A; Weight 92.99 kg; ld1 Height 5 ft. 9 in. (175.26 cm); Pain 0/10; 10:58 Body Mass Index 30.27 (92.99 kg, 175.26 cm) ld1 MDM: 10:52 Patient medically screened. kb 11:48 Data reviewed: vital signs, nurses notes. Data interpreted: Pulse oximetry: on room air kb is 100 %. Interpretation: normal. 06/01 10:57 Order name: COVID-19 SARS RT PCR (Document "Date of Onset" if Symptomatic); Complete kb Time: 12:47 06/01 10:57 Order name: Flu; Complete Time: 12:47 kb Administered Medications: No medications were administered Disposition Summary: 06/01/22 12:48 Discharge Ordered Location: Home kb Condition: Stable kb Diagnosis - Coronavirus infection, unspecified kb Followup: kb - With: Emergency Department - When: As needed - Reason: Worsening of condition Followup: kb - With: Private Physician - When: 2 - 3 days - Reason: Recheck today's complaints, Continuance of care, Re-evaluation by your physician Discharge Instructions: - Discharge Summary Sheet kb - Viral Respiratory Infection, [id number] kb - COVID-19 kb Forms: - Medication Reconciliation Form kb - Thank You Letter kb - Antibiotic Education kb - Prescription Opioid Use kb - Work release form ld1 Signatures: Dispatcher [employer] Evelyn Lilly FNP-C FNP-Ckb Dibbern, Lauren, RN RN ld1
--- NOTE | 2022-06-01 12:48 | ER ---
Nurse's Notes [facility] Name: Kolby Balbuena Age: 27 yrs Sex: Male : 1995 Arrival Date: 06/01/2022 Time: 10:49 Bed DIS3 Private MD: Diagnosis: Coronavirus infection, unspecified Presentation: 06/01 10:58 Chief complaint: Patient states: Body aches, lightheaded, fever X 4 days. COVID ld1 exposure. Coronavirus screen: Client presents with at least one sign or symptom that may indicate coronavirus-19. Standard/surgical mask placed on the client. Ebola Screen: No symptoms or risks identified at this time. Initial Sepsis Screen: Does the patient meet any 2 criteria? No. Patient's initial sepsis screen is negative. Does the patient have a suspected source of infection? No. Patient's initial sepsis screen is negative. Risk Assessment: Do you want to hurt yourself or someone else? Patient reports no desire to harm self or others. Onset of symptoms was June 01, 2022. 10:58 Method Of Arrival: Ambulatory ld1 10:58 Acuity: JEANNE 3 ld1 Triage Assessment: 10:59 General: Appears in no apparent distress. comfortable, Behavior is calm, cooperative, ld1 appropriate for age. Pain: Denies pain. EENT: No signs and/or symptoms were reported regarding the EENT system. Neuro: Level of Consciousness is awake, alert, obeys commands, Oriented to person, place, time, situation. Cardiovascular: Capillary refill < 3 seconds Patient's skin is warm and dry. Respiratory: Airway is patent Respiratory effort is even, unlabored. GI: Abdomen is round non-distended. : No signs and/or symptoms were reported regarding the genitourinary system. Derm: No signs and/or symptoms reported regarding the dermatologic system. Musculoskeletal: No signs and/or symptoms reported regarding the musculoskeletal system. Historical: - Allergies: 10:59 No Known Allergies; ld1 - Home Meds: 10:59 None [Active]; ld1 - PMHx: 10:59 Anxiety; ld1 - PSHx: 10:59 Appendectomy; ld1 - Immunization history:: Adult Immunizations up to date, Client reports having NOT received the Covid vaccine. - Social history:: Smoking status: Patient denies any tobacco usage or history of. Patient/guardian denies using alcohol. Screenin:27 Abuse screen: Denies threats or abuse. Denies injuries from another. Nutritional ld1 screening: No deficits noted. Tuberculosis screening: No symptoms or risk factors identified. Fall Risk None identified. Assessment: 11:27 Reassessment: See triage assessment. ld1 Vital Signs: 10:58 BP 129 / 103; Pulse 86; Resp 20; Temp 98.1(TE); Pulse Ox 100% on R/A; Weight 92.99 kg; ld1 Height 5 ft. 9 in. (175.26 cm); Pain 0/10; 10:58 Body Mass Index 30.27 (92.99 kg, 175.26 cm) ld1 ED Course: 10:49 Patient arrived in ED. as 10:49 Teo Michel DO is Attending Physician. ms3 10:50 Evelyn Swan FNP-C is [facility]. kb 10:59 Triage completed. ld1 10:59 Arm band placed on right wrist. ld1 11:03 COVID-19 SARS RT PCR (Document "Date of Onset" if Symptomatic) Sent. ld1 11:03 Flu Sent. ld1 11:04 Akanksha Polo, RN is Primary Nurse. iw 11:27 Patient has correct armband on for positive identification. Bed in low position. Call ld1 light in reach. Side rails up X2. Pulse ox on. NIBP on. Door closed. Noise minimized. Warm blanket given. 11:27 No provider procedures requiring assistance completed. Patient did not have IV access ld1 during this emergency room visit. Administered Medications: No medications were administered Medication: 11:27 VIS not applicable for this client. ld1 Outcome: 12:48 Discharge ordered by . kb 12:59 Discharged to home ambulatory, with family. ld1 12:59 Condition: stable 12:59 Discharge instructions given to patient, Instructed on discharge instructions, follow up and referral plans. Demonstrated understanding of instructions, follow-up care. 13:00 Patient left the ED. ld1 Signatures: Evelyn Swan FNP-C FNP-Abril Saab as Akanksha Polo, ROSEMARY RN iw Teo iMchel DO DO ms3 Lala Daley RN RN ld1 Corrections: (The following items were deleted from the chart) 11:00 10:58 Pulse 86bpm; Resp 20bpm; Pulse Ox 100% RA; Temp 98.1F Temporal; 92.99 kg; Height ld1 5 ft. 9 in.; BMI: 30.2; Pain 0/10; ld1
[2022-06-01 13:24] VITALS: BP 129/103; TEMP 98.1; O2SAT 100
== END 2022-06-01 13:00 | disposition home or self-care (01) ==
LOC: ER 10:45
DX: U07.1 COVID-19 (principal)
CPT/HCPCS: 87804; U0003

== ENCOUNTER 2023-10-16 16:34 | Emergency (ER) | payer SELFPAY ==
[2023-10-16 17:11] LABS: Absolute Lymphocytes (CBC) 0.7 K/uL (0.7-4.9); Hematocrit 42.6 % (39.6-49.0); Lymphocytes % 10.8 % (15.3-44.8); MCV 85.7 fL (80-100); MPV 6.9 fL (7.6-11.3); Platelets 215 thou/uL (152-406); RBC Red Blood Cell Count 4.97 M/uL (4.33-5.43)
[2023-10-16] MEDS ORDERED: HYDROCODONE/CHLORPHEN 5 ML/OSYR ONE (17:13)
[2023-10-16] MEDS ORDERED: LORAZEPAM 1 MG TABLET ONE (17:14)
[2023-10-16] MEDS ORDERED: IBUPROFEN 200 MG TAB PO ONE (17:14)
[2023-10-16] MEDS ORDERED: NA CHLORIDE 0.9% 3,000 ML ONE (17:14)
[2023-10-16 17:26] LABS: Albumin 4.3 g/dL (3.4-5.0); Bilirubin Total 0.5 mg/dL (0.2-1.0); Potassium 3.5 mEq/L (3.5-5.1); Protein, Total 8.1 g/dL (6.4-8.2)
[2023-10-16 17:32] LABS: SARS-CoV-2 Antigen Rapid Res Negative (Negative)
--- NOTE | 2023-10-16 17:46 | RAD REPORT ---
EXAM DESCRIPTION: RAD - Chest Single View - 10/16/2023 5:37 pm CLINICAL HISTORY: DYSPNEA Chest pain. COMPARISON: Chest Pa And Lat (2 Views) dated 11/27/2020; Chest Single View dated 05/27/2020Chest Pa A nd Lat (2 Views) dated 11/27/2020; Chest Single View dated 05/27/2020 FINDINGS: Portable technique limits examination quality. The lungs are grossly clear. The heart is normal in size. No displaced fractures. IMPRESSION: No acute intrathoracic process suspected.
[2023-10-16] MEDS ORDERED: ACETAMINOPHEN 325 MG TABLET ONE (17:52)
[2023-10-16] MEDS ORDERED: LIDOCAINE 2% MPF 5 ML VIAL ONE (18:42)
--- NOTE | 2023-10-16 20:00 | EDPHYS ---
Physician Documentation [facility] Name: Kolby Balbuena Age: 28 yrs Sex: Male : 1995 Arrival Date: 10/16/2023 Time: 16:34 Bed 6 Private MD: ED Physician Renaldo Hopkins HPI: 10/16 19:06 This 28 yrs old Male presents to ER via Ambulatory with complaints of snw Breathing Difficulty. 17:43 The patient has shortness of breath at rest. Onset: The symptoms/episode began/occurred snw suddenly. Severity of symptoms: At their worst the symptoms were moderate severe in the emergency department the symptoms have improved. The patient has not recently seen a physician. 19:06 Duration: The symptoms are intermittent, with coughing "fits". snw Historical: - Allergies: 16:46 No Known Allergies; hb - PMHx: 16:46 Anxiety; hb - PSHx: 16:46 Appendectomy; hb - Immunization history:: Adult Immunizations up to date. - Social history:: Smoking status: Patient reports the use of cigarette tobacco products, denies chronic smoking, but will smoke occasionally. ROS: 17:42 Eyes: Negative for injury, pain, redness, and discharge, ENT: Negative for injury, snw pain, and discharge, Neck: Negative for injury, pain, and swelling, Cardiovascular: Negative for chest pain, palpitations, and edema, 17:42 Abdomen/GI: Negative for abdominal pain, nausea, vomiting, diarrhea, and constipation, Back: Negative for injury and pain, : Negative for injury, bleeding, discharge, and swelling, MS/Extremity: Negative for injury and deformity, Skin: Negative for injury, rash, and discoloration, Neuro: Negative for headache, weakness, numbness, tingling, and seizure, 17:42 Constitutional: Positive for body aches, chills, fatigue, fever, poor PO intake, 17:42 Respiratory: Positive for cough, shortness of breath, wheezing, 17:42 Psych: Positive for "angry", Exam: 19:06 Head/Face: Normocephalic, atraumatic. Eyes: Pupils equal round and reactive to light, snw extra-ocular motions intact. Lids and lashes normal. Conjunctiva and sclera are non-icteric and not injected. Cornea within normal limits. Periorbital areas with no swelling, redness, or edema. ENT: Nares patent. No nasal discharge, no septal abnormalities noted. Tympanic membranes are normal and external auditory canals are clear. Oropharynx with no redness, swelling, or masses, exudates, or evidence of obstruction, uvula midline. Mucous membranes moist. Neck: Trachea midline, no thyromegaly or masses palpated, and no cervical lymphadenopathy. Supple, full range of motion without nuchal rigidity, or vertebral point tenderness. No Meningismus. Chest/axilla: Normal chest wall appearance and motion. Nontender with no deformity. No lesions are appreciated. 19:06 Abdomen/GI: Soft, non-tender, with normal bowel sounds. No distension or tympany. No guarding or rebound. No evidence of tenderness throughout. Back: No spinal tenderness. No costovertebral tenderness. Full range of motion. Skin: Warm, dry with normal turgor. Normal color with no rashes, no lesions, and no evidence of cellulitis. MS/ Extremity: Pulses equal, no cyanosis. Neurovascular intact. Full, normal range of motion. Neuro: Awake and alert, GCS 15, oriented to person, place, time, and situation. Cranial nerves II-XII grossly intact. Motor strength 5/5 in all extremities. Sensory grossly intact. Cerebellar exam normal. Normal gait. 19:06 Constitutional: The patient appears alert, awake, anxious, febrile, 19:06 Cardiovascular: Rate: tachycardic, 19:06 Respiratory: the patient does not display signs of respiratory distress, Respirations: accessory muscle usage, shallow respirations, tachypnea, Breath sounds: are clear throughout, pt states he is "angry" turns dusky post coughing spasms, 19:06 Psych: Behavior/mood is cooperative, anxious, aggressive, Oriented to person, place, time, Vital Signs: 16:43 BP 149 / 94; Pulse 148; Resp 24; Temp 101.6(TE); Pulse Ox 100% on R/A; Weight 92.99 kg; hb Height 5 ft. 9 in. ; 17:16 Pulse 132; Resp 20; Pulse Ox 100% on R/A; iw 17:35 BP 137 / 82; Pulse 133; Resp 18; Temp 102.6(O); Pulse Ox 99% on R/A; iw 18:07 BP 149 / 77; Pulse 123; Resp 18; Temp 100.6(O); Pulse Ox 97% on R/A; iw 18:59 BP 131 / 81; Pulse 112; Resp 19; Pulse Ox 98% on R/A; iw 20:16 BP 139 / 87; Pulse 73; Resp 15; Pulse Ox 98% ; nw1 16:43 Body Mass Index 30.27 (92.99 kg, 175.26 cm) hb Malina Coma Score: 20:16 Eye Response: spontaneous(4). Motor Response: obeys commands(6). Verbal Response: nw1 oriented(5). Total: 15. MDM: 16:39 Patient medically screened. snw 17:43 Differential diagnosis: asthma, Bronchitis Chronic Obstructive Pulmonary Disease snw pneumonia, reactive airway disease. Data interpreted: Pulse oximetry: on room air is 98 %. Interpretation: acceptable. Data reviewed: vital signs, nurses notes, lab test result(s). I considered the following discharge prescriptions or medication management in the emergency department Medications were administered in the Emergency Department. See MAR. Historians other than the Patient: Spouse/Significant Other: . Counseling: I had a detailed discussion with the patient and/or guardian regarding the historical points, exam findings, and any diagnostic results supporting the discharge/admit diagnosis, lab results. ED course: Pt had a coughing episode on arrival and became cyanotic. 10/16 16:48 Order name: Blood Culture Adult (2) snw 10/16 16:48 Order name: CBC with Diff; Complete Time: 17:24 snw 10/16 16:48 Order name: CMP; Complete Time: 17:32 snw 10/16 16:48 Order name: Lactate w/ 2H reflex if indic.; Complete Time: 17:44 snw 10/16 16:48 Order name: Protime (+inr); Complete Time: 17:24 snw 10/16 16:48 Order name: Ptt, Activated; Complete Time: 17:24 snw 10/16 16:48 Order name: ABG; Complete Time: 17:24 snw 10/16 16:50 Order name: Flu; Complete Time: 17:35 snw 10/16 16:50 Order name: SARS RAPID; Complete Time: 17:33 snw 10/16 16:48 Order name: Chest Single View XRAY; Complete Time: 17:47 snw 10/16 16:48 Order name: EKG; Complete Time: 16:49 snw 10/16 16:48 Order name: Accucheck; Complete Time: 17:03 snw 10/16 16:48 Order name: Cardiac monitoring; Complete Time: 17:03 snw 10/16 16:48 Order name: EKG - Nurse/Tech; Complete Time: 16:49 snw 10/16 16:48 Order name: IV Saline Lock - Large Bore; Complete Time: 16:49 snw 10/16 16:48 Order name: Labs collected and sent; Complete Time: 16:49 snw 10/16 16:48 Order name: O2 Per Protocol; Complete Time: 16:49 snw 10/16 16:48 Order name: O2 Sat Monitoring; Complete Time: 16:49 snw 10/16 16:48 Order name: Vital Signs; Complete Time: 17:03 snw EC:48 Rate is 136 beats/min. Rhythm is regular. QRS [place] is Normal. [place] interval is normal. snw QRS interval is normal. QT interval is normal. Clinical impression: Sinus tachycardia. Administered Medications: 16:51 CANCELLED (Duplicate Order): hydrocodone-acetaminophen5 mg-325 mg 1 tabs PO once snw 17:03 Drug: Ibuprofen PO 600 mg PO once Route: PO; iw 18:50 Follow up: Response: Temperature is decreased iw 17:16 Drug: NS 0.9% IV (30 ml/kg) 30 ml/kg IV at bolus once; Sepsis Protocol Route: IV; Rate: iw bolus; Site: right antecubital; 19:00 Follow up: IV Status: Infusion continued iw 17:16 Drug: Tussionex Pennkinetic ER PO Suspension 5 ml PO once Route: PO; iw 18:50 Follow up: Response: No adverse reaction iw 17:16 Drug: LORazepam PO 1 mg PO once; sublingual Route: PO; iw 18:50 Follow up: Response: No adverse reaction; Anxiety decreased iw 17:44 Drug: Acetaminophen PO 650 mg PO once Route: PO; iw 18:50 Follow up: Response: Temperature is unchanged iw 18:59 Drug: Lidocaine Infiltration (2 %) 5 mg Infiltration once; nebulize with 3ml NS at iw 8L/min via face mask Route: Infiltration; Disposition: 19:05 Critical Care:. snw Disposition Summary: 10/16/23 19:59 Discharge Ordered Notes: Location: Home snw Condition: Stable snw Diagnosis - Influenza due to other identified influenza virus with other respiratory snw manifestations - Flu B - Laryngospasm snw Followup: snw - With: Emergency Department - When: As needed - Reason: Worsening of condition Followup: snw - With: Private Physician - When: 2 - 3 days - Reason: Recheck today's complaints, Continuance of care, Re-evaluation by your physician Discharge Instructions: - Discharge Summary Sheet snw - Influenza, Adult snw - Pharyngitis snw - Cool Mist Vaporizer snw - Cough, Adult snw - Rehydration, Adult snw Forms: - Work release form snw - Medication Reconciliation Form snw - Thank You Letter snw - Antibiotic Education snw - Prescription Opioid Use snw - Patient Portal Instructions snw - Leadership Thank You Letter snw Prescriptions: - Delsym 12 hour 30 mg/5 mL Oral suspension, extended release 12 hr - take 5 milliliter ORAL route every 12 hours as needed for cough; 120 snw milliliter; Refills: 0, Product Selection Permitted - acetaminophen-codeine 300-30 mg Oral tablet - take 1 tablet ORAL route 3 times per day for cough; 15 tablet; Refills: 0, snw Product Selection Permitted - lorazepam 0.5 mg Oral tablet - take 1 tablet BUCCAL route every 12 hours prn panic; 5 tablet; Refills: 0, snw Product Selection Permitted - Zyrtec 10 mg Oral Tablet - take 1 tablet ORAL route once daily As needed; 20 tablet; Refills: 0, Product snw Selection Permitted - Pepcid 20 mg Oral Tablet - take 1 tablet ORAL route once daily; 20 tablet; Refills: 0, Product Selection snw Permitted Critical care time excluding procedures: 19:05 Critical care time: Bedside Care: 10 minutes, Consultation: 10 minutes, Family snw Intervention: 10 minutes. Total time: 30 minutes Signatures: Dispatcher [employer] Jeannie Alcantara FNP-C FNP-Csnw Akanksha Polo RN RN Christina Parham RN RN Corrections: (The following items were deleted from the chart) 16:51 16:51 HYDROcodone-acetaminophen PO 5 mg-325 mg 1 tabs PO once ordered. snw snw 19:09 19:06 Respiratory: the patient does not display signs of respiratory distress, snw Respirations: accessory muscle usage, shallow respirations, tachypnea, Breath sounds: are clear throughout, snw
--- NOTE | 2023-10-16 20:00 | ER ---
Nurse's Notes [facility] Name: Kolby Balbuena Age: 28 yrs Sex: Male : 1995 Arrival Date: 10/16/2023 Time: 16:34 Bed 6 Private MD: Diagnosis: Influenza due to other identified influenza virus with other respiratory manifestations-Flu B;Laryngospasm Presentation: 10/16 16:43 Chief complaint: Cough and SOB x 2 days, reports throat "feels like it's closing up." hb Appeared cyanotic while coughing during in registration. Coronavirus screen: Client presents with at least one sign or symptom that may indicate coronavirus-19. Provider contacted for isolation considerations. Ebola Screen: No symptoms or risks identified at this time. Initial Sepsis Screen: Does the patient meet any 2 criteria? RR > 20 per min. Temp <36.0*C (96.8*F)) or > 38.3*C (100.9*F). HR > 90 bpm. Yes Does the patient have a suspected source of infection? Yes: Productive cough/pneumonia. Risk Assessment: Do you want to hurt yourself or someone else? Patient reports no desire to harm self or others. Onset of symptoms was October 15, 2023. 16:43 Method Of Arrival: Ambulatory hb 16:43 Acuity: JEANNE 2 hb Historical: - Allergies: 16:46 No Known Allergies; hb - PMHx: 16:46 Anxiety; hb - PSHx: 16:46 Appendectomy; hb - Immunization history:: Adult Immunizations up to date. - Social history:: Smoking status: Patient reports the use of cigarette tobacco products, denies chronic smoking, but will smoke occasionally. Screenin:17 [facility] ED Fall Risk Assessment (Adult) Score/Fall Risk Level 0 - 2 = Low Risk. Abuse iw screen: Denies threats or abuse. Denies injuries from another. Nutritional screening: No deficits noted. Tuberculosis screening: No symptoms or risk factors identified. Assessment: 17:16 Reassessment: Patient appears in no apparent distress at this time. Patient and/or iw family updated on plan of care and expected duration. Pain level reassessed. Patient states feeling better. 18:58 Cardiovascular: Rhythm is regular. Respiratory: Reports cough that is Airway is patent iw Respiratory effort is even, unlabored, Breath sounds are clear bilaterally. 18:58 General: Appears Behavior is cooperative, anxious. Pain: Complains of pain in throat. iw 19:18 Reassessment: Report received. Rounds made. Pt noted in bed with S.O at bedside. nw1 Breathing treatment being tolerated at this time. Call light at bedside. Pt noted breathing without difficulty. s/s of respiratory distress at this time. Will continue to monitor. 20:00 Reassessment: Pending paperwork for discharge. nw1 20:49 Reassessment: Pt called and notified that Ativan 0.5mg prescription and patient states nw1 he will return to hospital to receive. Vital Signs: 16:43 BP 149 / 94; Pulse 148; Resp 24; Temp 101.6(TE); Pulse Ox 100% on R/A; Weight 92.99 kg; hb Height 5 ft. 9 in. ; 17:16 Pulse 132; Resp 20; Pulse Ox 100% on R/A; iw 17:35 BP 137 / 82; Pulse 133; Resp 18; Temp 102.6(O); Pulse Ox 99% on R/A; iw 18:07 BP 149 / 77; Pulse 123; Resp 18; Temp 100.6(O); Pulse Ox 97% on R/A; iw 18:59 BP 131 / 81; Pulse 112; Resp 19; Pulse Ox 98% on R/A; iw 20:16 BP 139 / 87; Pulse 73; Resp 15; Pulse Ox 98% ; nw1 16:43 Body Mass Index 30.27 (92.99 kg, 175.26 cm) hb [place] Coma Score: 20:16 Eye Response: spontaneous(4). Motor Response: obeys commands(6). Verbal Response: nw1 oriented(5). Total: 15. ED Course: 16:36 Patient arrived in ED. mr 16:39 Jeannie Hinkle, [facility]I [facility]. snw 16:39 Renaldo Hopkins MD is Attending Physician. snw 16:46 Triage completed. hb 16:47 Arm band placed on. hb 16:49 Inserted saline lock: 18 gauge in right forearm, using aseptic technique. Blood ds4 collected. 16:51 Akanksha Polo, RN is Primary Nurse. iw 17:17 Patient has correct armband on for positive identification. Pulse ox on. NIBP on. iw 17:39 Chest Single View XRAY In Process Unspecified. EDMS 18:59 No provider procedures requiring assistance completed. iw 20:37 Provided Education on: Discharge instuctions. nw1 20:37 IV discontinued, intact, bleeding controlled, No redness/swelling at site. Pressure nw1 dressing applied. Administered Medications: 16:51 CANCELLED (Duplicate Order): hydrocodone-acetaminophen5 mg-325 mg 1 tabs PO once snw 17:03 Drug: Ibuprofen PO 600 mg PO once Route: PO; iw 18:50 Follow up: Response: Temperature is decreased iw 17:16 Drug: NS 0.9% IV (30 ml/kg) 30 ml/kg IV at bolus once; Sepsis Protocol Route: IV; Rate: iw bolus; Site: right antecubital; 19:00 Follow up: IV Status: Infusion continued iw 17:16 Drug: Tussionex Pennkinetic ER PO Suspension 5 ml PO once Route: PO; iw 18:50 Follow up: Response: No adverse reaction iw 17:16 Drug: LORazepam PO 1 mg PO once; sublingual Route: PO; iw 18:50 Follow up: Response: No adverse reaction; Anxiety decreased iw 17:44 Drug: Acetaminophen PO 650 mg PO once Route: PO; iw 18:50 Follow up: Response: Temperature is unchanged iw 18:59 Drug: Lidocaine Infiltration (2 %) 5 mg Infiltration once; nebulize with 3ml NS at iw 8L/min via face mask Route: Infiltration; Medication: 20:37 VIS not applicable for this client. nw1 Outcome: 19:59 Discharge ordered by MD. snw 20:37 Discharged to home ambulatory, nw1 20:37 Condition: stable 20:37 Discharge instructions given to patient, Instructed on discharge instructions, follow up and referral plans. medication usage, Demonstrated understanding of instructions, follow-up care, medications, Prescriptions given X 4, 20:39 Patient left the ED. nw1 Signatures: Dispatcher [employer] EDMS Jeannie Hinkle, EMILY-C PEDIATRIC ASSISTANT-CsnCheri Caldera, Reg Reg mr Akanksha Polo, RN RN Juan Hanks ds4 Christina Parham RN RN Abril Polo RN RN nw1 Corrections: (The following items were deleted from the chart) 17:17 17:16 Resp 20bpm; Pulse Ox 100% RA; iw iw 18:10 18:07 BP 149 / 77; Pulse 123bpm; Resp 18bpm; Pulse Ox 97% RA; iw iw
[2023-10-16 21:09] VITALS: TEMP 100.6
[2023-10-16 21:11] VITALS: O2SAT 98
[2023-10-16 21:12] VITALS: BP 139/87
--- NOTE | 2023-10-19 17:00 | EKG ---
Test Date: 2023-10-16 Test Time: 16:47:04 [employer]: KALEE MEASUREMENT RESULTS: Intervals: Rate: 136 [place]: 146 QRSD: 88 QT: 292 QTc: 439 [place]: P: 62 [place]: 146 QRS: 43 T: 16 INTERPRETIVE STATEMENTS: Sinus tachycardia Otherwise normal ECG Compared to ECG 11/27/2020 18:17:35 Sinus rhythm no longer present Electronically Signed On 10-19-23 16:53:32 AUTOMATED ACCESS SYSTEMS TECHNICIAN by Hima English
== END 2023-10-16 20:39 | disposition home or self-care (01) ==
LOC: ER 16:34
DX: J10.1 Influenza due to other identified influenza virus with other respiratory manifestations (principal); J38.5 Laryngeal spasm; R05.9 Cough, unspecified; R06.02 Shortness of breath; F41.9 Anxiety disorder, unspecified; Z20.822 Contact with and (suspected) exposure to COVID-19; Z11.52 Encounter for screening for COVID-19; Z72.0 Tobacco use
CPT/HCPCS: 36415; 36600; 71045; 80053; 82805; 83605; 85025; 85610; 85730; 87040; 87804; 87811; 93005; 96365; 96366; 99284; J2001; J7030